=== PATIENT | male | born 1940 | race Caucasian/White ===

== ENCOUNTER 2016-09-03 11:55 | Outpatient (CLI) | payer OTHER ==
[2016-09-03 12:43] LABS: eGFR (African) > 60; eGFR (Non-African) > 60
== END 2016-09-03 11:56 ==
LOC: LAB 11:55
PROVIDERS: ATTEND Family Medicine
DX: E78.5 Hyperlipidemia, unspecified (principal); R73.9 Hyperglycemia, unspecified
CPT/HCPCS: 36415; 80053; 80061; 83036

== ENCOUNTER 2016-09-14 08:37 | Outpatient (CLI) | payer OTHER ==
[~2016-09-14 08:37] MED LIST: BUPIVACAINE HCL/PF 2.5 MG/ML 10ML VIAL IV ONE; Lidocaine 1% 5ml(IM or SUTURE)(PAIN CLINIC) ONE; TRIAMCINOLONE ACETONID 40MG/ML VIAL ONE
--- NOTE | 2016-09-15 14:41 | HISTORY AND PHYSICAL REPORT ---
REFERRING PHYSICIAN: Dr. Jeff Gloria HISTORY OF PRESENT ILLNESS: I had the opportunity of seeing Ryan Nayak today as an outpatient at [facility]. This is a very pleasant 76-year-old white male who presents with primary right-sided shoulder pain. He says he has some pain on the left. He indicates some parascapular symptoms as well. He denies arm pain. Denies numbness, tingling, or weakness in the upper extremity. He denies symptoms of neurogenic claudication or lower extremity pain. He says that the shoulder hurts to lay on it at night and that it can be worse related to work as well. He remains active. He does a good deal of gardening and his garden season has begun. He is having increasing right shoulder joint symptoms. He tells me that he had a shoulder joint injection done a couple of years ago by an orthopedist and he describes in the area of the subdeltoid bursa. He said that this really did improve his shoulder pain. He had an MRI done and was told that he had a rotator cuff tear. As I review the films today at [facility], I do not find an MRI of his shoulders on our system and I have also checked at [facility]. PAST MEDICAL HISTORY: 1. History of problems with vision. 2. Hearing loss. 3. Nose or sinus problems. 4. High cholesterol. 5. Seasonal allergies. PAST SURGICAL HISTORY: 1. Right cataract removed and lens implant in 2005. 2. Tonsillectomy. CURRENT DAILY MEDICATIONS: 1. Finasteride 5 mg daily. 2. Simvastatin 40 mg daily. 3. Aspirin 81 mg daily. 4. Cetirizine 10 mg daily. ALLERGIES: Penicillin, unknown reaction. SOCIAL HISTORY: He currently chews tobacco. He is a daily drinker of at least alcoholic beverage per day. Denies recreational drugs. He has been for the past 45 years. He has 2 children and lives at home with his . He is not currently employed. His occupation was a teacher/assistant field hockey coach. He obtained his B.A. He is retired. He is not currently disabled. FAMILY HISTORY: Family history includes his father esophageal cancer and a CVA. Mother with respiratory disease and cardiovascular disease. REVIEW OF SYSTEMS: In the last month or so, he reports a cough or cold. Pain is worse with lying, changes in weather, and in any position for too long. PHYSICAL EXAMINATION: General: On examination today, this is a well-nourished, well-developed white male in no apparent distress. Vital Signs: BP: 127/71, P: 69, R: 16, T: 97.8, oxygen saturation is 98% on room air. HEENT: Pupils are equal, round, and reactive to light and accommodation. Extraocular movements intact. No facial droop. Neck: There is full range of motion of the cervical spine. No evidence of adenopathy. Thyroid is nontender, no enlarged. Carotids are without bruits. Chest: Clear to auscultation bilaterally. Normal. Chest excursion. Heart: Regular rate and rhythm without murmur. Abdomen: Benign. Normoactive bowel sounds. Motor/sensory: Intact in the upper and lower extremities. Moves all extremities freely. Extremities: There is reproducible pain and tenderness over the supraspinatus tendons bilaterally with resisted abduction. There is reproducible pain with arc extension. He has symptoms posteriorly over the shoulder joint on the right side. There is pain and tenderness with palpation of the subdeltoid bursa on the right. There is none on the left. Back: There are normal cervical, thoracic and lumbar curvatures. There are negative sacroiliac joint findings bilaterally. No evidence of pain or tenderness over the facet joints. Negative piriformis bilaterally. Negative straight leg raise. No evidence of dermatomal weakness or numbness in the lower extremities. Bilateral negative femoral nerve stretch. Patellar tendons are 2+ and equal bilaterally. ASSESSMENT: 1. Degenerative joint disease of the shoulders. 2. History of rotator cuff tear, no recent imaging. PLAN: Plan today for a right shoulder joint injection under fluoroscopy. I have discussed PRP/bone marrow aspirate concentrate injection for repair of rotator cuff tears; and at this point, Mr. Nayak would like me to do a right shoulder joint injection. cc: Dr. Jeff DE LAR OSA
--- NOTE | 2016-09-15 14:48 | SHOULDER JOINT INJECT FLOURO ---
REFERRING PHYSICIAN: Dr. Jeff Gloria PROCEDURE: Right shoulder joint injection with fluoroscopic guidance. DESCRIPTION OF PROCEDURE: The risks and benefits of the injection were discussed with the patient, including the risks of infection, bleeding, and nerve injury. Furthermore, I discussed the risk of steroid exposure causing hyperglycemia, hypertension, osteoporosis, or increased infectious risks. The patient understood these risks and agreed to proceed. Consent was obtained. The patient was placed in the prone position on the fluoroscopy table. The skin overlying the posterior shoulder was cleaned with a Betadine preparation x. An AP fluoroscopic view of the right shoulder joint was obtained. A 23-gauge, 3 inch Quickie-tip spinal needle was inserted under direct fluoroscopic guidance from a posterior approach until the needle contacted the head of the humerus at the shoulder joint. It was verified that there was no aspiration of fluid or blood. Omnipaque 240 myelogram dye was injected and noted to course within the joint capsule. Triamcinolone acetate and 1% lidocaine mixed with 0.25% bupivacaine was subsequently injected. The stylette was replaced in the needle and the needle was removed from the shoulder joint. At this point, attention was directed to the right subdeltoid bursa and a second injection of triamcinolone acetate and 1% lidocaine mixed with 0.25% bupivacaine was placed. The skin was cleaned and a bandage was applied over the injection site. ASSESSMENT: 1. Degenerative Joint Disease of the shoulders. 2. History of rotator cuff tear, no recent imaging. PLAN: Right shoulder joint injection. FOLLOW UP: Return to clinic if problems develop or worsen. Dr. Gloria, thank you very much for allowing me to take part in the care of this nice gentleman. I appreciate the opportunity to take part in the care of your patients. cc: Dr. Jeff DE LA ROSA
== END 2016-09-14 08:40 ==
LOC: OUT 08:37
PROVIDERS: ATTEND Anesthesiology Pain Medicine
DX: M19.011 Primary osteoarthritis, right shoulder (principal)
CPT/HCPCS: J3301; J3490; 20610; 99214; G0463

== ENCOUNTER 2017-10-27 11:11 | Outpatient (CLI) | payer OTHER ==
[2017-10-27 12:10] LABS: eGFR (African) > 60; eGFR (Non-African) > 60
== END 2017-10-27 13:24 ==
LOC: LAB 11:11
PROVIDERS: ATTEND Family Medicine
DX: Z13.6 Encounter for screening for cardiovascular disorders (principal); Z13.9 Encounter for screening, unspecified
CPT/HCPCS: 36415; 80053; 80061